=== PATIENT | male | born 1960 | race Caucasian/White ===

== ENCOUNTER → 2019-01-17 | Outpatient (CLI) | payer OTHER | LOC: M.LAB 04:55 | DX: E87.6 Hypokalemia (principal) ==

== ENCOUNTER 2019-01-23 07:27 | Emergency (ER) | payer OTHER ==
[~2019-01-23] VITALS: Ht 177.8 cm; Wt 99.8 kg
[2019-01-23 07:44] LABS: ABSOLUTE BASOPHILS 0.1 thou/uL (0.0-0.2); ABSOLUTE EOSINOPHILS 0.1 thou/uL (0.0-0.7); ABSOLUTE LYMPHOCYTES 2.1 thou/uL (0.8-5.3); ABSOLUTE MONOCYTES 1.5 thou/uL (0.0-1.2); ABSOLUTE NEUTROPHILS 9.3 thou/uL (1.6-8.1); BASOPHILS 0.6 %; EOSINOPHILS 0.9 %; HEMATOCRIT 48.9 % (42.0-52.0); HEMOGLOBIN 17.2 gm/dL (14.0-18.0); LYMPHOCYTES 16.3 %; MCH 32.4 pg (26.0-34.0); MCHC 35.2 g/dL (28.0-37.0); MCV 91.9 fL (80.0-100.0); MONOCYTES 11.4 %; MPV 7.3 fl. (7.2-11.1); NUCLEATED RBCS 0 /100WBC; PLATELET COUNT* 386 thou/uL (150-400); POLYS 70.8 %; RBC 5.32 mil/uL (4.50-6.00); RDW-CV 12.8 % (10.5-14.5); WBC 13.2 thou/uL (4.0-11.0)
[2019-01-23 07:44] LABS: URINE BLOOD 1+ (Negative); URINE CLARITY CLEAR; URINE COLOR DARK YELLOW; URINE GLUCOSE-RANDOM NEGATIVE (Negative); URINE KETONES 2+ (Negative); URINE LEUKOCYTES-REFLEX NEGATIVE (Negative); URINE NITRITE-REFLEX NEGATIVE (Negative); URINE PROTEIN 2+ (Negative); URINE SPECIFIC GRAVITY 1.025 (1.005-1.030)
[2019-01-23] MEDS ORDERED: COZAAR 25 MG TA25 M1 PO (07:45)
[2019-01-23] MEDS ORDERED: AMLODIPINE BESY10 MG PO (07:45)
[2019-01-23] MEDS ORDERED: OMEPRAZOLE40 MG PO (07:45)
[2019-01-23] MEDS ORDERED: FLOMAX0.4 MG PO (07:46)
[2019-01-23 07:49] LABS: ICTOTEST (BILI CONFIRMATORY) Positive (Negative); URINE BILIRUBIN 2+ (Negative)
[2019-01-23 08:05] LABS: SQUAMOUS NONE SEEN /LPF (0-3)
[2019-01-23 08:06] LABS: URINE RBC 3-10 Few /HPF (0-2); URINE WBC-REFLEX 0-5 Rare /HPF (0-5)
[2019-01-23 08:07] LABS: BACTERIA-REFLEX None Seen /HPF (None Seen); CRYSTALS None Seen /LPF (None Seen); HYALINE CASTS 0-3 Few /LPF (None Seen); MUCUS >6 Heavy strn/LPF (None Seen)
[2019-01-23 08:18] LABS: POTASSIUM 3.1 mmol/L (3.5-5.1); SODIUM 138 mmol/L (136-145)
[2019-01-23 08:34] LABS: ALKALINE PHOSPHATASE 69 U/L (46-116); ANION GAP 13 mmol/L (7-16); BUN 16 mg/dL (7-18); CALCIUM 9.4 mg/dL (8.5-10.1); CHLORIDE 96 mmol/L (98-107); CO2 29 mmol/L (21-32); CREATININE 1.1 mg/dL (0.6-1.3); GLUCOSE 120 mg/dL (70-99); LIPASE 84 U/L (73-393); SGOT 18 U/L (15-37); SGPT 27 U/L (30-65); TOTAL BILIRUBIN 1.3 mg/dL (<0.1-1.0); TOTAL PROTEIN 9.1 g/dL (6.4-8.2); TROPONIN-I LEVEL <0.06 ng/mL (<0.06)
[2019-01-23] MEDS ORDERED: FLAGYL500 M1 PO (10:33)
[2019-01-23] MEDS ORDERED: HYDROCODON-ACE1 EAC7 PO (10:33)
[2019-01-23] MEDS ORDERED: K-DUR 20 MEQ T20 MEQ PO (10:33)
[2019-01-23] MEDS ORDERED: ZOFRAN4 MG PO (10:33)
[2019-01-23] MEDS ORDERED: AUGMENTIN 875-1 EACH PO (10:33)
[2019-01-23 10:49] VITALS: BP 132/81
--- NOTE | 2019-01-23 10:51 | EKG ---
[place] [address] ELECTROCARDIOGRAM REPORT Name: MALISSA IRVING Room: [facility]#: [id number] Admission: 01/23/19 Attend Phys: Discharge: Date of : 56 Report #: [id number] THIS REPORT FOR: //name// [facility] ED Test Date: 2019-01-23 Test Time: 07:51:23 Pat Name: MALISSA IRVING Department: Room: Gender: Java Architect: : [id number] Requested By: Scottie Taylor Order Number: [id number] MD: Charlie Sparrow Measurements Intervals [place] Rate: 88 P: 61 [place]: 138 QRS: 25 QRSD: 96 T: -2 QT: 360 QTc: 436 Interpretive Statements Sinus rhythm nonspecific st changes noted Probable left atrial enlargement No previous ECG available for comparison Electronically Signed On 01-23-2019 10:51:29 CDT by Charlie Sparorw [email or web address] <ELECTRONICALLY SIGNED> By: Charlie Sparrow MD, [facility] 01/23/19 1051 [id number] Charlie Sparrow MD, FACC /EPI
== END 2019-01-23 10:53 | disposition home or self-care (01) ==
LOC: M.ERS 07:27
PROVIDERS: Emergency Medicine
DX: K80.20 Calculus of gallbladder without cholecystitis without obstruction (principal); I10 Essential (primary) hypertension; K21.9 Gastro-esophageal reflux disease without esophagitis